=== PATIENT | male | born 1995 | race American Indian/Alaskan Native ===

== ENCOUNTER 2024-11-18 11:19 | Emergency (ER) | payer OTHER, SELFPAY ==
[2024-11-18] VITALS (18 sets, daily range): BP systolic 125–151; BP diastolic 94–109; PULSE 99–105; RESP 16–28; TEMP 37; O2SAT 95–99
--- NOTE | ~2024-11-18 | XR_ITS ---
Examination: XR chest 1V portable Clinical History: CP X 2 DAYS Comparison: None Technique: Portable AP Findings: Heart size normal. Lungs clear. No acute bony abnormality. IMPRESSION: 1. No acute cardiopulmonary findings given portable technique. Reviewed, dictated and finalized at location R.
--- NOTE | 2024-11-18 12:05 | ECG_ITS ---
Test Date: 2024-11-18 12:14:30 Measurements Intervals [place] Rate: 95 P: 24 ME: 139 QRS: 5 QRSD: 83 T: -1 QT: 340 QTc: 428 Interpretive Statements SINUS RHYTHM POSSIBLE LEFT ATRIAL ENLARGEMENT [-0.1mV P-WAVE IN V1/V2] NONSPECIFIC T-WAVE ABNORMALITY ABNORMAL ECG Electronically Signed On 11-18-2024 13:09:58 CDT by Sunil Nguyen M.D.
--- NOTE | 2024-11-18 12:13 | ED_ITS ---
HPI - Nausea/Vomiting/Diarrhea General Chief complaint: Nausea/Vomiting/Diarrhea Stated complaint: myalgias, n/v Time Seen by Provider: 11/18/24 12:08 Source: patient Mode of arrival: ambulatory Limitations: no limitations History of Present Illness HPI Narrative: 28 years old male came to the emergency room by private car complaining of body aches, headache, sore throat, dry cough, painful urination, dizziness started 3 days ago. Patient works as a long haul truck driver from [place], healthy otherwise, does not smoke or drink or use drugs Related Data Allergies Allergy/AdvReac Type Severity Reaction Status Date / Time No Known Allergies Allergy Verified 11/18/24 11:19 Review of Systems 2 Review of Systems: All systems reviewed & are unremarkable except as noted in HPI and below Exam 2 Narrative: General appearance: Well-developed, well-nourished Skin: Normal color Head: Normocephalic, nontraumatic Eyes: Clear conjunctiva ENT: Oropharyngeal erythema Neck: Supple, nontender Chest and respiratory: Airway patent, no respiratory distress, no accessory muscle use Heart: Regular rate/rhythm Abdomen: Soft, nontender, no organomegaly, quiet bowel sounds Vascular: Normal peripheral pulses, normal capillary refill. Musculoskeletal: Normal range of motion, nontender back Neurologic: Alert and oriented ?3, [employer] is normal as tested, no gross motor deficit Course Course Emergency Course: Patient presents with multiple symptoms mainly body aches, dizziness and headache and sore throat Vital signs are stable Physical examination showing alisa pharyngeal erythema Differential diagnosis viral infection, strep throat, mono, electrolyte imbalance, dehydration, pneumonia, urinary tract infection, urethritis Vital Signs Vital signs: Vital Signs Temperature 37.0 C 11/18/24 11:20 Pulse Rate 105 H 11/18/24 11:20 Respiratory Rate 16 11/18/24 11:20 Blood Pressure 125/98 H 11/18/24 11:20 Pulse Oximetry 99 11/18/24 11:20 Oxygen Delivery Room Air 11/18/24 11:20 Temperature 37.0 C 11/18/24 11:20 Pulse Rate 105 H 11/18/24 11:20 Respiratory Rate 16 11/18/24 11:20 Blood Pressure 125/98 H 11/18/24 11:20 Pulse Oximetry 99 11/18/24 11:20 Oxygen Delivery Room Air 11/18/24 11:20 MDM - Nausea/Vomiting/Diarrhea MDM Narrative Medical decision making narrative: Patient came with multiple symptoms mainly sore throat, headache, body aches and dizziness Vital signs are stable Physical examination showing alisa pharyngeal erythema Differential diagnosis include upper respiratory viral infection, mono, strep, dehydration, electrolyte imbalance, pneumonia, urinary tract infection Blood workup today includes CBC, CMP, respiratory viral panel, strep, mono, showed positive COVID Urinalysis showed evidence of infection Chest x-ray showed no acute abnormality Discharged on Cipro and Paxilovid Differential Diagnosis Differential diagnosis: Likely dehydration and other (As above) Lab Data 11/18/24 12:11 11/18/24 12:11 Labs: Lab Results 11/18/24 11/18/24 11/18/24 Range/Units 12:11 12:12 12:17 WBC 6.0 (4.5-10.0) K/mm3 RBC 5.66 (4.6-6.20) M/mm3 Hgb 12.8 L (14.0-18.0) g/dL Hct 42.7 (42.0-52.0) % MCV 75.4 L (80-100) fl MCH 22.6 L (26-34) pg MCHC 30.0 L (32-36) g/dl RDW 15.7 H (11.5-14.5) % Plt Count 299 (150-375) k/mm3 MPV 8.4 (7.4-10.4) fl Immature Gran % (Auto) 0.7 H (0-0.5) % Neut % (Auto) 55.1 (45.5-73.1) % Lymph % (Auto) 29.2 (18.3-44.2) % [place] % (Auto) 14.4 H (2.6-8.5) % Eos % (Auto) 0.3 (0-4.4) % Baso % (Auto) 0.3 (0.2-1.2) % Lymph # (Auto) 1.76 (0.9-3.2) K/mm3 [place] # (Auto) 0.9 H (0.1-0.6) K/mm3 Eos # (Auto) 0.0 (0-0.3) K/mm3 Baso # (Auto) 0.0 (0.0-0.1) K/mm3 Abs Immat Gran (auto) 0.04 H (0.00-0.031) K/mm3 Absolute Neuts (auto) 3.3 (1.3-6.7) K/mm3 Absolute Nucleated RBC 0.000 (0.0-0.012) K/mm3 Nucleated RBC % 0.0 (0.0-0.2) % PT 13.8 (11.1-14.7) Seconds INR 1.1 APTT 29.6 (22.3-36.8) Seconds Sodium 139 (137-145) mmol/L Potassium 4.0 (3.4-5.0) mmol/L Chloride 102 (98-107) mmol/L Carbon Dioxide 25 (22-30) mmol/L Anion Gap 12 (4-12) mmol/L BUN 12 (9-20) mg/dL Creatinine 0.94 (0.7-1.3) mg/dL Estim Creat Clear Calc 129 ml/min Estimated GFR > 60 (59 - ) Glucose 93 (65-110) mg/dL Calcium 9.2 (8.4-10.2) mg/dL Total Bilirubin 0.5 (0.2-1.3) mg/dL AST 45 (17-59) U/L ALT 59 H (6-50) U/L Alkaline Phosphatase 53 (38-126) U/L Total Protein 8.6 H (6.3-8.2) g/dL Albumin 4.9 (3.5-5.1) g/dL Lipase 155 (23-300) U/L Urine Color Yellow (Yellow) Urine Appearance Cloudy H (Clear) Urine pH 5.5 (5.0-9.0) Ur Specific [place] 1.027 (1.001-1.035) Urine Protein Trace (Negative) mg/dL Urine Glucose (UA) Negative (Negative) mg/dL Urine Ketones Trace H (Negative) mg/dL Ur Blood (Man) Negative (Negative) Urine Nitrate Negative (Negative) Urine Bilirubin Negative (Negative) Urine Urobilinogen 1.0 (<2.0) mg/dL Leukocyte Esterase Rfl 2+ H (Negative) CHRISTEN/UL Urine RBC 0-2 (0-2) /hpf Urine WBC 51-100 H (0-3) /hpf Ur Squamous Epith Cells None seen (Few) /hpf Urine Bacteria None seen /hpf Urine Casts 0-2 Monoscreen Negative (Negative) Influenza A (RT-PCR) Negative (Negative) Influenza B (RT-PCR) Negative (Negative) RSV (RT-PCR) Negative (Negative) SARS-CoV-2 RNA (RT-PCR) Positive A (Negative) Group A Strep (PCR) Not detected (Negative) Critical Care Time Critical Care Time Critical Care Time: No Discharge Plan Discharge Clinical Impression: COVID, Urinary tract infection Patient Disposition: Home Condition: Stable Instructions: Urinary Tract Infection in Men (DC), COVID-19 (Coronavirus Disease 2019) (ED) Additional Instructions: Return if symptoms are worsening , call your family physician for appointment, take Tylenol, ibuprofen as as needed for aches and pain, continue home medications. Do not drive your truck if you are not improving or the symptoms are still there. Of work for the next 3 days start tomorrow Patient Language: [place]ian Prescriptions: New Paxlovid 150 mg (10)- 100 mg (10) tablets,dose pack 1 tablet PO BID 5 Days Qty: 10 0RF Rx Instructions: 1 tablet twice a day; ciprofloxacin HCl [Cipro] 500 mg tablet 500 mg PO Q12H Qty: 14 0RF Follow-up/Referrals: PHYSICIAN NOT ON STAFF,NONSTAFF [Primary Care Provider] Stand Alone Forms: Work/School Release IP
[2024-11-18] MEDS: ASPIRIN 81 MG CHEWABLE TABLET 324 MG PO (12:20)
[2024-11-18 12:24] LABS: Hematocrit 42.7 % (42.0-52.0); Hemoglobin 12.8 g/dL (14.0-18.0); Immature Granulocyte Percent A 0.7 % (0-0.5); Lymphocytes Absolute Auto 1.76 K/mm3 (0.9-3.2); Mean Corpuscular HGB Conc 30.0 g/dl (32-36); Mean Corpuscular Hemoglobin 22.6 pg (26-34); Mean Corpuscular Volume 75.4 fl (80-100); Nucleated Red Blood Cells Absolute Auto 0.000 K/mm3 (0.0-0.012); Nucleated Red Blood Cells Perc 0.0 % (0.0-0.2); Platelet Count Result 299 k/mm3 (150-375); Red Blood Count 5.66 M/mm3 (4.6-6.20); White Blood Count 6.0 K/mm3 (4.5-10.0)
[2024-11-18 12:33] LABS: Add Urine Microscopic? YES; Appearance Urine Cloudy (Clear); Glucose Urine UA Negative (Negative); Leukocyte Esterase Ur 2+ LEU/UL (Negative); Nitrate Urine Negative (Negative); Non Pathogenic Casts 0-2; Specific Grav Ur 1.027 (1.001-1.035)
[2024-11-18 12:38] LABS: INR 1.1; Prothrombin Time 13.8 Seconds (11.1-14.7)
[2024-11-18 12:39] LABS: Partial Thromboplastin Time 29.6 Seconds (22.3-36.8)
[2024-11-18 12:48] LABS: Strep Group A RT-PCR NOT DETECTED (Negative)
[2024-11-18 12:49] LABS: Alanine Aminotransferase 59 U/L (6-50); Albumin Level 4.9 g/dL (3.5-5.1); Alkaline Phosphatase 53 U/L (38-126); Anion Gap 12 mmol/L (4-12); Aspartate Amino Transferase 45 U/L (17-59); Bilirubin,Total 0.5 mg/dL (0.2-1.3); Blood Urea Nitrogen 12 mg/dL (9-20); Calcium 9.2 mg/dL (8.4-10.2); Carbon Dioxide 25 mmol/L (22-30); Chloride 102 mmol/L (98-107); Estimated CRCL calculation 129 ml/min; Estimated Glomerular Filt Rate > 60; Glucose 93 mg/dL (65-110); Lipase 155 U/L (23-300); Potassium 4.0 mmol/L (3.4-5.0); Sodium 139 mmol/L (137-145); Total Protein 8.6 g/dL (6.3-8.2)
[2024-11-18 13:01] LABS: Influenza A QL RT-PCR Negative (Negative); Influenza B QL RT-PCR Negative (Negative); RSV RNA, RT-PCR Negative (Negative); SARS-CoV-2 RNA PCR Positive (Negative)
[2024-11-18 13:26] LABS: Negative Monotest Control Negative (Negative); Positive Monotest Control Positive (Positive)
== END 2024-11-18 14:36 | disposition home or self-care (01) ==
PROVIDERS: Emergency Medicine; Emergency Provider Emergency Medicine
DX: U07.1 COVID-19 (principal); N39.0 Urinary tract infection, site not specified; R94.31 Abnormal electrocardiogram [ECG] [EKG]
CPT/HCPCS: 36415; 71045; 80053; 81001; 83690; 85025; 85610; 85730; 86308; 87086; 87637; 87651; 93005; 99283; A9270